=== PATIENT | male | born 1970 | race African-American/Black ===

== ENCOUNTER 2018-01-09 08:34 | Emergency (ER) | payer SELFPAY ==
[2018-01-09] MEDS ORDERED: Ketorolac Tromethamine 60 MG/2 ML VIAL ONE (09:53)
[2018-01-09] MEDS ORDERED: Lidocaine 1% (PF) 30 ML VIAL ONE (09:53)
[2018-01-09] MEDS ORDERED: Adacel (T-DAP) 0.5 ML VIAL ONE (11:30)
== END 2018-01-09 11:52 | disposition home or self-care (01) ==
LOC: ERS 08:34
DX: L72.3 Sebaceous cyst (principal); F17.210 Nicotine dependence, cigarettes, uncomplicated
CPT/HCPCS: 10060; 87070; 87205; 90471; 90715; 96372; J1885; J2001

== ENCOUNTER 2019-06-22 12:38 | Emergency (ER) | payer OTHER, SELFPAY ==
--- NOTE | 2019-06-22 14:05 | RAD ---
PORTABLE CHEST ONE VIEW: 06/22/19 at 1:34 p.m. HISTORY: Fever, cough, chest pain. FINDINGS: Comparison is made with exam of 11/03/13. The heart size is normal. The lungs are well expanded without lobar consolidation, pneumothoraces or pleural effusions. IMPRESSION: No acute process. POS: [facility]
== END 2019-06-22 14:30 | disposition home or self-care (01) ==
LOC: ERS 12:38
DX: J06.9 Acute upper respiratory infection, unspecified (principal); F17.210 Nicotine dependence, cigarettes, uncomplicated
CPT/HCPCS: 71045

== ENCOUNTER 2020-10-10 | Emergency (ER) | payer SELFPAY | END 2020-10-10 21:07 | disposition home or self-care (01) ==

== ENCOUNTER 2020-11-03 11:41 | Emergency (ER) | payer SELFPAY ==
[2020-11-03 13:14] LABS: #Basophils 0.1 thou/uL (0.0-0.2); #Eosinphils 0.1 thou/uL (0.0-0.7); #Lymphocytes 2.2 thou/uL (1.20-3.40); #Monocytes 0.4 thou/uL (0.11-0.59); %Basophils 1.4 % (0.0-1.0); %Lymphocytes 38.4 % (21.0-51.0); %Monocytes 6.2 % (0.0-10.0); Hemoglobin 15.9 g/dL (14.0-18.0); Mean Corpuscular HGB CONC 33.3 g/dL (32.0-36.0); Mean Corpuscular Hemoglobin 32.3 pg (27.0-31.0); Mean Corpuscular Volume 96.9 fL (78.0-98.0); RBC Distribution Width 13.8 % (11.5-14.5); Red Blood Cell (RBC) Count 4.94 mill/uL (4.70-6.10); White Blood Cell (WBC) Count 5.7 thou/uL (4.8-10.8)
[2020-11-03 13:28] LABS: Bilirubin Negative (Negative); Blood, Urine Negative (Negative); Clarity Clear (Clear); Glucose, Urine (Dipstick) Normal (Negative); Ketone, Urine Negative (Negative); Leukocyte Negative Leu/uL (Negative); Nitrite Negative (Negative); Protein, Urine (Dipstick) 10 mg/dL (Neg-Trace); Specific Gravity, Urine 1.033 (1.002-1.036); Urobilinogen Normal mg/dL (Less than 2); pH, Urine 5.5 (5.0-9.0)
[2020-11-03 13:32] LABS: ALT (SGPT) 19 U/L (8-55); AST (SGOT) 22 U/L (5-34); Albumin 4.3 g/dL (3.5-5.0); Alkaline Phosphatase 41 U/L (40-110); Anion Gap 10 mmol/L (10-20); BUN (Urea Nitrogen) 29 mg/dL (8.9-20.6); CK (CPK) 452 U/L (30-200); Calc. Creatinine Clearance 0 mL/min (70-130); Calcium 9.7 mg/dL (7.8-10.44); Carbon Dioxide 24 mmol/L (22-29); Chloride 107 mmol/L (98-107); Globulin 2.8 g/dL (2.4-3.5); Glucose 81 mg/dL (70-105); Protein, Total 7.1 g/dL (6.0-8.3); Sodium 137 mmol/L (136-145)
[2020-11-03 13:38] LABS: Mean Platelet Volume 10.4 fL (7.4-10.4); Platelet Count 99 thou/uL (130-400); Platelet Morphology Comment Appears Decreased; RBC Morphology Normal
[2020-11-03 17:01] LABS: SARS-CoV-2 PCR by NAA Not Detected (NotDetected)
== END 2020-11-03 14:23 | disposition home or self-care (01) ==
LOC: ERS 11:41
DX: R06.00 Dyspnea, unspecified (principal); Z20.822 Contact with and (suspected) exposure to COVID-19; F17.210 Nicotine dependence, cigarettes, uncomplicated
CPT/HCPCS: 36415; 71045; 80053; 81003; 82550; 84484; 85025; 93005; U0003; U0005

== ENCOUNTER 2022-09-30 10:00 | Emergency (ER) | payer SELFPAY | END 2022-09-30 11:06 | disposition home or self-care (01) | LOC: ERS 10:00 | DX: B34.9 Viral infection, unspecified (principal); F17.210 Nicotine dependence, cigarettes, uncomplicated; Z20.822 Contact with and (suspected) exposure to COVID-19 | CPT/HCPCS: 71045; 87635 ==

== ENCOUNTER 2023-06-26 18:04 | Inpatient (IN) | payer BC, SELFPAY ==
[~2023-06-26 18:04] MED LIST: Iopamidol-370 76% 500 ML MDV (1 ML CHARGE) ONE
[2023-06-26 18:32] LABS: #Basophils Less than 0.03 10x3/uL (0.0-0.2); %Basophils 0.4 % (0.0-1.0); %Eosinophils 1.9 % (0.0-10.0); %Lymphocytes 43.5 % (21.0-51.0); %Monocytes 6.5 % (0.0-10.0); %Neutrophils 47.5 % (42.0-75.0); Hematocrit 45.6 % (42.0-52.0); Hemoglobin 15.6 g/dL (14.0-18.0); Mean Corpuscular HGB CONC 34.2 g/dL (32.0-36.0); Mean Corpuscular Hemoglobin 32.4 pg (27.0-31.0); Mean Corpuscular Volume 94.8 fL (78.0-98.0); Mean Platelet Volume 12.2 fL (7.4-10.4); Platelet Count 147 10x3/uL (130-400); RBC Distribution Width 13.5 % (11.5-14.5); Red Blood Cell (RBC) Count 4.81 mill/uL (4.70-6.10)
[2023-06-26 18:50] LABS: Prothrombin Time 13.4 sec (12.0-14.7)
[2023-06-26 18:51] LABS: PTT 27.7 sec (22.9-36.1)
[2023-06-26 18:53] LABS: Globulin 2.7 g/dL (2.4-3.5)
[2023-06-26 18:58] LABS: ALT (SGPT) 12 U/L (8-55); AST (SGOT) 15 U/L (5-34); Albumin 3.8 g/dL (3.5-5.0); Alkaline Phosphatase 58 U/L (40-110); Anion Gap 14 mmol/L (10-20); BUN (Urea Nitrogen) 23 mg/dL (8.4-25.7); Bilirubin, Total 0.5 mg/dL (0.2-1.2); Calc. Creatinine Clearance 0 mL/min (70-130); Calcium 9.5 mg/dL (7.8-10.44); Carbon Dioxide 22 mmol/L (22-29); Chloride 108 mmol/L (98-107); Estimated GFR 82; Glucose 131 mg/dL (70-105); Potassium 4.3 mmol/L (3.5-5.1); Protein, Total 6.5 g/dL (6.0-8.3); Sodium 140 mmol/L (136-145)
[2023-06-26 22:49] VITALS: BMI 25.7
[2023-06-26] MEDS: Aspirin 300 MG Suppository PR SCH (23:01)
[2023-06-27] MEDS: Dextrose 5%-Lactated Ringers 1,000 ML IV SCH ×2 (00:56→17:56)
[2023-06-27 01:26] LABS: Amphetamine Detected (NotDetected); Barbiturates Screen Not Detected (NotDetected); Benzodiazepine Screen Not Detected (NotDetected); Cocaine Metabolite Screen Detected (NotDetected); Methadone Not Detected (NotDetected); Methamphetamine Detected (NotDetected); Opiate Screen Not Detected (NotDetected); Oxycodone Screen Not Detected (NotDetected); Phencyclidine (PCP) Not Detected (NotDetected); THC/Cannabinoid Screen Not Detected (NotDetected); Tricyclic Screen Not Detected (NotDetected)
[2023-06-27] MEDS: hydrALAZINE 20 MG/ML VIAL SLOW IVP PRN (03:55)
[2023-06-27] MEDS ORDERED: Ondansetron ODT 4 MG TAB PO PRN (07:29)
[2023-06-27] MEDS: Multivit, Therapeutic 1 TAB PO SCH (08:53)
[2023-06-27] MEDS: Thiamine HCl 200 MG/2 ML VIAL SLOW IVP SCH (08:53)
[2023-06-27] MEDS: Folic Acid 1 MG TAB PO SCH (08:53)
[2023-06-27] MEDS ORDERED: Dextrose 5%-Lactated Ringers 1,000 ML IV SCH (15:57)
[2023-06-27] MEDS ORDERED: hydrALAZINE 20 MG/ML VIAL SLOW IVP PRN (15:59)
[2023-06-27] MEDS: Aspirin 81 mg Enteric Coated Tablet PO SCH (17:56)
[2023-06-27] MEDS: Heparin 5,000 UNITS/ML VIAL SC SCH (21:30)
[2023-06-27] MEDS: Cyanocobalamin (Vitamin B-12) 1,000 MCG TAB PO SCH (21:30)
[2023-06-27] MEDS: Atorvastatin Calcium 40 MG TAB PO SCH (21:30)
[2023-06-28] MEDS: Amlodipine 5 MG TAB PO SCH (08:04)
[2023-06-29 05:06] LABS: #Basophils Less than 0.03 10x3/uL (0.0-0.2); %Basophils 0.5 % (0.0-1.0); %Eosinophils 1.2 % (0.0-10.0); %Lymphocytes 39.5 % (21.0-51.0); %Monocytes 9.4 % (0.0-10.0); %Neutrophils 49.4 % (42.0-75.0); Hematocrit 43.5 % (42.0-52.0); Hemoglobin 14.9 g/dL (14.0-18.0); Mean Corpuscular HGB CONC 34.3 g/dL (32.0-36.0); Mean Corpuscular Hemoglobin 31.6 pg (27.0-31.0); Mean Corpuscular Volume 92.2 fL (78.0-98.0); Mean Platelet Volume 11.6 fL (7.4-10.4); Platelet Count 136 10x3/uL (130-400); RBC Distribution Width 13.5 % (11.5-14.5); Red Blood Cell (RBC) Count 4.72 mill/uL (4.70-6.10)
[2023-06-29 05:17] LABS: Anion Gap 14 mmol/L (10-20); BUN (Urea Nitrogen) 12 mg/dL (8.4-25.7); Calc. Creatinine Clearance 97 mL/min (70-130); Calcium 9.2 mg/dL (7.8-10.44); Carbon Dioxide 21 mmol/L (22-29); Chloride 108 mmol/L (98-107); Estimated GFR 83; Glucose 99 mg/dL (70-105); Phosphorus 4.1 mg/dL (2.3-4.7); Potassium 3.8 mmol/L (3.5-5.1); Sodium 139 mmol/L (136-145)
[2023-06-29] MEDS ORDERED: Amlodipine 5 MG TAB PO SCH (09:00)
[2023-06-29] MEDS: Amlodipine 5 MG TAB PO SCH (10:53)
[2023-06-30] MEDS: Thiamine 100 MG TAB PO SCH (09:22)
[2023-06-30] MEDS ORDERED: Melatonin 3 MG TAB PO PRN (17:21)
[2023-07-01 15:41] VITALS: BP 142/85; TEMP 97.9
== END 2023-07-01 18:30 | disposition home or self-care (01) | DRG 917 ==
LOC: ERS 18:04 → 2SE 20:29 → OBSVTOIN 06-27 11:47 → 2SE 07-01 10:07
PROVIDERS: ADMIT Student in an Organized Health Care Education/Training Program; ATTEND Internal Medicine
PROC: 4A00X4Z Measurement of Central Nervous Electrical Activity, External Approach (ICD-10-PCS; principal; 2023-06-30)
DX: T43.621A Poisoning by amphetamines, accidental (unintentional), initial encounter (principal); I63.512 Cerebral infarction due to unspecified occlusion or stenosis of left middle cerebral artery; G81.93 Hemiplegia, unspecified affecting right nondominant side; T43.651A Poisoning by methamphetamines accidental (unintentional), initial encounter; F17.210 Nicotine dependence, cigarettes, uncomplicated; F12.90 Cannabis use, unspecified, uncomplicated; I16.0 Hypertensive urgency; F10.10 Alcohol abuse, uncomplicated; F19.10 Other psychoactive substance abuse, uncomplicated
CPT/HCPCS: 0042T; 36415; 36416; 51798; 70450; 70496; 70498; 70551; 71045; 74230; 80048; 80053; 80061; 80306; 83735; 84100; 84484; 85025; 85610; 85730; 93005; 93306; 95700; 95712; 95819; 96374; 96375; G0378; J0360; J1644; J3411; Q9967

== ENCOUNTER 2023-10-14 18:32 | Emergency (ER) | payer BC, OTHER ==
[2023-10-14] MEDS ORDERED: Lidocaine 1% w/Epinephrine 1:100K 20 ML VIAL ONE (20:37)
== END 2023-10-14 21:33 | disposition home or self-care (01) ==
LOC: ERS 18:32
DX: S09.90XA Unspecified injury of head, initial encounter (principal); S01.81XA Laceration without foreign body of other part of head, initial encounter; S60.221A Contusion of right hand, initial encounter; S70.01XA Contusion of right hip, initial encounter; I10 Essential (primary) hypertension; W55.22XA Struck by cow, initial encounter
CPT/HCPCS: 12013; 70450